=== PATIENT | male | born 1995 | race Caucasian/White ===

== ENCOUNTER 2023-04-23 19:43 | Emergency (ER) | payer BC, SELFPAY ==
[2023-04-23 19:54] VITALS: BP 120/76
--- NOTE | 2023-04-23 21:33 | ED.GENMED ---
History of Present Illness
General
Chief Complaint: Cold/Flu/URI Symptoms
Source: patient
Exam Limitations: none
Time Seen by Provider: 04/23/23 20:59
Travel History
Have you had any contact with someone who has COVID-19?: No
Do you have any symptoms of coronavirus? Fever > 100 degrees, chills, cough, shortness of breath, sore throat, loss of taste or smell, muscle aches, or headache?: Yes
Symptoms:: ABOVE
History of Present Illness
History of Present Illness:
This is a 27 year old male that comes in with c/o fever. States that he has had a fever all day and it was up to 102. States that he felt he had trouble breathing and his body was sore. States that he had felt sick on and off all week. States that
he went to on Saturday and he tested negative for COVID. States that they were treating him for a sinus infection and gave him Amoxicillin and a steroid taper. States that he had chills, felt SOB going up and down the steps, nausea and headache.
Denies any chest pain, abd pain, vomiting, diarrhea, dizziness, urinary burning.
Past History
Past History
ED Past Medical History: None; Negative Asthma, HTN, Hypercholesterolemia or NIDDM
ED Past Surgical History: Other (hernia)
Social History
Tobacco: Former smoker
Alcohol: Occasional
Drug: Marijuana
Personal: Single
Living: with family
Review of Systems
Review of Systems
All Other Systems: ROS reviewed and negative except as documented in HPI and ROS
Constitutional: Reports fever and chills
EENT: Reports no symptoms
Respiratory: Reports trouble breathing (up and down steps); Denies cough
Cardiac: Reports no symptoms; Denies chest pain
ABD/GI: Reports nausea; Denies abdominal pain, vomiting or diarrhea
: Reports no symptoms; Denies dysuria, frequency or urgency
Musculoskeletal: Reports no symptoms
Skin: Reports no symptoms
Neurological: Reports headache; Denies dizzy
Psychiatric: Reports no symptoms
Phy Exam
General Physical Exam
General Presentation: no apparent distress
General age: appears stated age
General Skin: warm and dry
General Habitus: normal
General Mental: alert
General Hydration: appears well hydrated
ENT Exam
ENT Exam: TM's normal, pharynx normal and neck supple
Eye Exam
Eye Exam: EOMI
Cardiovascular Exam
Cardiovascular Exam: regular rate/rhythm, no edema, no murmur and normal peripheral pulses
Pulmonary Exam
Pulmonary Exam: lungs clear, no respiratory distress, no rales, chest non tender, no crackles, no rhonchi, no wheezing and no cough
Gastrointestinal Exam
Gastrointestinal Exam: normal bowel sounds, non tender, soft, no organomegaly, no pulsatile mass and non distended
Musculoskeletal Exam
Musculoskeletal Exam: full ROM and no edema
Skin Exam
Skin Exam: normal color, warm/dry, no rash and no petechia
Psychiatric Exam
Psychiatric Exam: normal mood/affect
Course
Orders/Labs/Results
Orders:
Orders
04/23/23 20:01
Influenza A+B Rapid Molecular Urgent
BRENDA Source: Nasal Swab
Specimen Description:
04/23/23 21:33
0.9% Sodium Chloride 1000 ml [Nss] 1,000 ml IV BOLUS
Acetaminophen [Tylenol] 1,000 mg PO NOW STA
Ketorolac [Toradol] 30 mg IV NOW STA
04/23/23 21:51
Ondansetron Injectable [Zofran] 4 mg IV NOW STA
04/23/23 21:52
Ondansetron Injectable [Zofran] 4 mg .ROUTE .STK-MED ONE
Influenza A
Vital Signs
Initial and Last Documented VS:
Initial Vital Signs
Temp Pulse Resp BP Pulse Ox
99 F 110 24 120/76 95
04/23/23 19:54 04/23/23 19:54 04/23/23 19:54 04/23/23 19:54 04/23/23 19:54
Last Documented Vital Signs
Temp Pulse Resp BP Pulse Ox
99 F 110 24 120/76 95
04/23/23 19:54 04/23/23 19:54 04/23/23 19:54 04/23/23 19:54 04/23/23 19:54
MDM/Problems Addressed
Differential Diagnosis Includes:
Influenza. Viral syndrome
MDM/Problems Addressed:
This is a 27 year old male that come sin with c/o fever and body aches. States that he has been sick on and off for the past three weeks. Patient went to on Saturday and he tested negative for COVID.
Will give IV fluid, Tylenol, Toradol and test for influenza.
Back into see patient. Patient states that he is feeling better. Encouraged patient to increase his water intake to 8-8oz glasses daily. Tylenol or Ibuprofen for fever and body aches. Follow up with the family doctor as needed. Return with any
concerns.
Chronic conditions affecting care:
NA
Acute Exacerbation and/or Progression of Chronic Illness:
NA
*Pulse Oximetry
Patient hypoxic: no
*EKG
Interpreted by ED Provider?: NA
Rate: EKG- N/A
*Traffic Control Supervisor Interpretation
Rate: Traffic Control Supervisor- N/A
*Critical Care Note
Total Time (30-74mins, 75-104mins- exclusive of procedures): Not Applicable
ED Attending Note
-
Portions of this chart may have been created with voice recognition software.� Occasional wrong word or��sound alike� substitutions may have occurred due to the inherent limitations of voice recognition software.
Discharge Plan
Departure
Patient Disposition: Home (Routine Discharge)
Date of Disposition: 04/23/23
Time of Disposition: 23:28
Patient with high blood pressure during this ER visit?: No
Condition: Good
Covid-19: Not Applicable
Discharge Problem:
Influenza A
Instructions: Flu, Adult (DC)
Prescriptions:
No Action
calcium carbonate [Antacid (calcium carbonate)] 1 TABLET tablet,chewable
2 tab PO Q4HPRN PRN (Reason: indigestion)
bismuth subsalicylate [Success Bismuth] 1 TABLET tablet,chewable
2 tab PO QIDPRN PRN (Reason: abd pain)
Referrals:
Rojelio Curtis MD [Family Provider] - As needed
Activity Restrictions/Additional Instructions:
As discussed, you have influenza A. Please increase your water intake to 8-8oz glasses daily. Please use Tylenol 1000mg every 6 hours for fever and body aches and you may alternate with Ibuprofen 600mg very 6 hours with food for fever and aches.
Follow up with the family doctor as needed. IF YOU HAVE ANY OTHER CONCERNS PLEASE RETURN TO THE EMERGENCY ROOM.
Interventions
Interventions:
*Risk Screen - Suicide Last Done: 04/23/23 19:54
*Neglect/Abuse Screening Last Done: 04/23/23 19:54
ED- Fall Risk Assessment Last Done: 04/23/23 21:30
ED- Pulmonary Assessment Last Done: 04/23/23 21:30
[2023-04-23] MEDS: TORADOL 30 MG IV (21:50)
[2023-04-23] MEDS: NSS 1000 IV (21:50)
[2023-04-23] MEDS: ZOFRAN 4 MG IV (22:01)
[2023-04-23] MEDS: TYLENOL 1000 MG PO (22:32)
== END 2023-04-23 23:58 | disposition home or self-care (01) ==
LOC: EMR 19:43
PROVIDERS: EMERGENCY PHYSICIAN Emergency Medicine; FAMILY PHYSICIAN Family Medicine
DX: J10.1 Influenza due to other identified influenza virus with other respiratory manifestations (principal); R51.9 Headache, unspecified; R11.0 Nausea; Z87.891 Personal history of nicotine dependence; Z88.1 Allergy status to other antibiotic agents
CPT/HCPCS: 99284; 96374; 96375; 96361; 87502